=== PATIENT | male | born 1980 | race Caucasian/White ===

== ENCOUNTER 2016-11-22 21:53 | Emergency (ER) | payer OTHER ==
[~2016-11-22 21:53] MED LIST: CELEXA PO; DIAZEPAM PO; LORTAB 10/500 T1 TAB PO; NO MEDICATIONS; PRILOSEC PO; TYLOX 5/500 CAP1 CAP PO
== END 2016-11-22 22:00 | disposition left against medical advice (07) ==
LOC: CED 21:53
DX: Z53.21 Procedure and treatment not carried out due to patient leaving prior to being seen by health care provider (principal)

== ENCOUNTER 2016-12-07 20:15 | Emergency (ER) | payer OTHER | END 2016-12-07 20:51 | disposition left against medical advice (07) | LOC: CED 20:15 | DX: Z53.21 Procedure and treatment not carried out due to patient leaving prior to being seen by health care provider (principal) ==